=== PATIENT | female | born 1990 | race American Indian/Alaskan Native ===

== ENCOUNTER 2016-11-08 12:29 | Emergency (ER) | payer OTHER ==
[2016-11-08 12:38] VITALS: BP 135/86
--- NOTE | 2016-11-08 14:12 | Emergency Department Report ---
ED General Adult HPI - General Chief complaint: Wound/Laceration Stated complaint: LT LEG LACERATION Time Seen by Provider: 11/08/16 12:58 Source: patient Mode of arrival: Ambulatory Limitations: No Limitations - History of Present Illness Initial comments: 26-year-old female presents to the ED with superficial laceration to the anterior left lower leg. States this happened about 3 hours prior to arrival. Denies other injury. States bleeding is under control. - Related Data Allergies Allergy/AdvReac Type Severity Reaction Status Date / Time No Known Allergies Allergy Unverified 11/08/16 12:38 ED Review of Systems ROS: Stated complaint: LT LEG LACERATION Other details as noted in HPI Constitutional: denies: chills, fever Eyes: denies: eye pain, eye discharge, vision change ENT: denies: ear pain, throat pain Respiratory: denies: cough, shortness of breath, wheezing Cardiovascular: denies: chest pain, palpitations Endocrine: no symptoms reported Gastrointestinal: denies: abdominal pain, nausea, diarrhea Genitourinary: denies: urgency, dysuria, discharge Musculoskeletal: denies: back pain, joint swelling, arthralgia Skin: other (laceration). denies: rash, lesions Neurological: denies: headache, weakness, paresthesias Psychiatric: denies: anxiety, depression Hematological/Lymphatic: denies: easy bleeding, easy bruising ED Past Medical Hx - Past Medical History Previous Medical History?: No - Surgical History Past Surgical History?: No - Social History Smoking Status: Never Smoker Substance Use Type: None ED Physical Exam - General Limitations: No Limitations General appearance: alert, in no apparent distress - Head Head exam: Present: atraumatic, normocephalic - Eye Eye exam: Present: normal appearance - ENT ENT exam: Present: mucous membranes moist - Neck Neck exam: Present: normal inspection - Respiratory Respiratory exam: Present: normal lung sounds bilaterally. Absent: respiratory distress - Cardiovascular Cardiovascular Exam: Present: regular rate, normal rhythm. Absent: systolic murmur, diastolic murmur, rubs, gallop - GI/Abdominal GI/Abdominal exam: Present: soft, normal bowel sounds - Extremities Exam Extremities exam: Present: normal inspection, other (4 cm superficial vertical laceration to left lower leg.) - Back Exam Back exam: Present: normal inspection - Neurological Exam Neurological exam: Present: alert, oriented X3 - Psychiatric Psychiatric exam: Present: normal affect, normal mood - Skin Skin exam: Present: warm, dry, intact, normal color. Absent: rash ED Course Vital Signs 11/08/16 12:33 Temperature 98.3 F Pulse Rate 76 Respiratory 18 Rate Blood Pressure 135/86 O2 Sat by Pulse 100 Oximetry - Procedure Description Procedures done: Patient wound cleaned with Betadine and sterile saline. Surgical adhesive used to glue the wound edges together. Patient tolerated procedure well. Critical care attestation.: If time is entered above; I have spent that time in minutes in the direct care of this critically ill patient, excluding procedure time. ED Disposition Clinical Impression: Laceration of left lower leg Disposition: DISCHARGED TO HOME OR SELFCARE Is pt being admited?: No Does the pt Need Aspirin: No Condition: Good Instructions: Laceration (ED), Skin Adhesive Care (ED) Referrals: [facility], [Primary Care Provider] - 3-5 Days [facility] [Provider Group] - 3-5 Days Forms: Work/School Release Form(ED) Time of Disposition: 14:12
== END 2016-11-08 14:28 | disposition home or self-care (01) ==
LOC: ED 12:29
DX: S81.812A Laceration without foreign body, left lower leg, initial encounter (principal); X58.XXXA Exposure to other specified factors, initial encounter; Y93.89 Activity, other specified; Y99.9 Unspecified external cause status; Y92.89 Other specified places as the place of occurrence of the external cause
CPT/HCPCS: 99282

== ENCOUNTER 2019-06-04 20:30 | Inpatient (IN) | payer MEDICAID ==
[2019-06-04] MEDS ORDERED: TERBUTALINE 1 MG/1 ML INJ IVP PRN (22:04)
[2019-06-04] MEDS ORDERED: MINERAL OIL 30 ML ORAL LIQD PO PRN (22:04)
[2019-06-04] MEDS ORDERED: ePHEDrine SULFATE 50 MG/1 ML INJ IV PRN (22:04)
[2019-06-04] MEDS ORDERED: TERBUTALINE 1 MG/1 ML INJ SUB-Q PRN (22:04)
[2019-06-04] MEDS ORDERED: ZOLPIDEM 10 MG TAB PO PRN (22:08)
[2019-06-04 22:20] LABS: Hematocrit 36.1 % (30.3-42.9); Hemoglobin 11.9 gm/dl (10.1-14.3); Mean Corpuscular HGB Conc 33 % (30-34); Mean Corpuscular Volume 91 fl (79-97); Platelet Count 196 K/mm3 (140-440); Red Blood Count 3.96 M/mm3 (3.65-5.03); Red Cell Distribution Width 14.4 % (13.2-15.2)
[2019-06-04] MEDS ORDERED: LIDOCAINE (2%) 20 MG/1 ML VIAL 20 ML MDV INFILTRATI ONE (22:24)
[2019-06-04] MEDS ORDERED: DINOPROSTONE 10 MG VAG SUPP VG ONE (22:34)
[2019-06-04] MEDS ORDERED: OXYTOCIN 20 UNIT/1000ML DRIP 20 UNITS/1,000 ML BAG IV SCH (23:00)
[2019-06-04] MEDS ORDERED: OXYTOCIN DRIP 30 UNITS/500 ML BAG IV SCH (23:00)
[2019-06-04] MEDS ORDERED: LACTATED RINGERS 1,000 ML IV SCH (23:00)
--- NOTE | 2019-06-05 09:49 | History and Physical Report ---
History of Present Illness Date of examination: 06/05/19 Date of admission: 06/04/19 20:39 Chief complaint: Induction of labor History of present illness: Pt is a 29yo BF EDC 06/10/19; EGA 39 2/7 weeks presents for induction of labor due to Obesity per [facility]. She received care at [facility] since 13 weeks and co-managed by [facility] fpr Obesity. records are available and GBS is Positive. Past History Past Medical History: no pertinent history Past Surgical History: no surgical history Family/Genetic History: none Social history: no significant social history, single - Obstetrical History Expected Date of Delivery: 06/10/19 Actual Gestation: 39 Week(s) 2 Day(s) : 2 Medications and Allergies Allergies Allergy/AdvReac Type Severity Reaction Status Date / Time No Known Allergies Allergy Unverified 11/08/16 12:38 Active Meds: Active Medications Ephedrine Sulfate (Ephedrine Sulfate) 10 mg IV Q2M PRN PRN Reason: Hypotension Oxytocin/Sodium Chloride (Pitocin/Ns 20 Unit/1000ml Drip) 20 units in 1,000 mls @ 125 mls/hr IV DIRECT NANDINI Oxytocin/Sodium Chloride (Pitocin/Ns 30 Unit/500ml) 30 units in 500 mls @ 1 mls/hr IV TITR NANDINI; Protocol Lactated Ringer's (Lactated Ringers) 1,000 mls @ 125 mls/hr IV DIRECT NANDINI Mineral Oil (Mineral Oil) 30 ml PO QHS PRN PRN Reason: Constipation Terbutaline Sulfate (Brethine) 0.25 mg SUB-Q ONCE PRN PRN Reason: Hyperstimulation/Hypertonicity Terbutaline Sulfate (Brethine) 0.25 mg IVP ONCE PRN PRN Reason: Hyperstimulation/Hypertonicity Zolpidem Tartrate (Ambien) 10 mg PO QHS PRN PRN Reason: Insomnia Last Admin: 06/04/19 22:42 Dose: 10 mg Documented by: Review of Systems All systems: negative - Vital Signs Vital signs: Vital Signs Pulse BP 93 H 143/67 06/04/19 21:04 06/04/19 21:04 Temp Pulse Resp BP Pulse Ox 97.3 F L 83 18 130/83 99 06/05/19 07:08 06/05/19 07:18 06/05/19 07:08 06/05/19 07:08 06/05/19 07:18 - Physical Exam Breasts: Positive: deferred Cardiovascular: Regular rate Lungs: Positive: Clear to auscultation Abdomen: Positive: normal appearance Genitourinary (Female): Positive: normal external genitalia Uterus: Positive: enlarged Extremities: Positive: normal - Obstetrical FHR: category 1 Uterine Contraction Monitor Mode: External Uterine Contraction Pattern: Absent Results Result Diagrams: 06/04/19 22:00 All other labs normal. Assessment and Plan - Patient Problems (1) 39 weeks gestation of Onset Date: 06/05/19 Current Visit: Yes Status: Acute Plan to address problem: A: IUP @ 39 2/7 weeks Obesity +GBS P: Admit to L&D for cervidil/pitocin induction of labor IV Ampicillin
[2019-06-05] MEDS ORDERED: BUTORPHANOL 2 MG/1 ML INJ IV PRN (11:00)
[2019-06-05] MEDS ORDERED: TERBUTALINE 1 MG/1 ML INJ SUB-Q PRN (11:00)
[2019-06-05] MEDS ORDERED: TERBUTALINE 1 MG/1 ML INJ IVP PRN (11:00)
[2019-06-05] MEDS ORDERED: OXYTOCIN 20 UNIT/1000ML DRIP 20 UNITS/1,000 ML BAG IV SCH (11:00)
[2019-06-05] MEDS ORDERED: fentaNYL 100 MCG/2 ML INJ IV PRN (11:00)
[2019-06-05] MEDS ORDERED: ePHEDrine SULFATE 50 MG/1 ML INJ IV PRN (11:00)
[2019-06-05] MEDS ORDERED: AMPICILLIN/NS 2 GM/100 ML 2 GM/100 ML BAG IV ONE (11:00)
[2019-06-05] MEDS ORDERED: MINERAL OIL 30 ML ORAL LIQD PO PRN (11:00)
[2019-06-05] MEDS ORDERED: OXYTOCIN DRIP 30 UNITS/500 ML BAG IV SCH ×2 (11:00)
[2019-06-05] MEDS ORDERED: ONDANSETRON 4 MG/2 ML INJ IV PRN (11:00)
[2019-06-05] MEDS ORDERED: LIDOCAINE (2%) 20 MG/1 ML VIAL 20 ML MDV INFILTRATI NR (11:00)
[2019-06-05] MEDS ORDERED: DINOPROSTONE 10 MG VAG SUPP VG ONE (16:00)
[2019-06-05] MEDS: AMPICILLIN/NS 1 GM/50 ML 1 GM/50 ML BAG IV SCH (16:44)
[2019-06-06] MEDS ORDERED: OXYTOCIN DRIP 30 UNITS/500 ML BAG IV SCH (07:00)
--- NOTE | 2019-06-06 08:56 | Progress Note ---
Assessment and Plan - Patient Problems (1) 39 weeks gestation of Onset Date: 06/05/19 Current Visit: Yes Status: Acute Plan to address problem: A: IUP @ 39 3/7 weeks Obesity +GBS P: Continue with pitocin induction of labor IV Ampicillin Subjective - Subjective Date of service: 06/06/19 Principal diagnosis: IUP @ 39 3/7 weeks; Obesity Interval history: Pt is a 29yo BF EDC 06/10/19; EGA 39 3/7 weeks presents for induction of labor due to Obesity per [facility]. She received care at [facility] since 13 weeks and co-managed by [facility] for Obesity. She received cervidil x 2 last night and currently shelbie irregularly. GBS is Positive. Patient reports: movement normal, contractions, no new complaints, no loss of fluid, no vaginal bleeding Objective - Vital Signs Vital Signs: Vital Signs - 12hr 06/06/19 06/06/19 06/06/19 00:00 02:06 03:54 Temperature 98.2 F Pulse Rate 88 75 Respiratory Rate Blood Pressure 129/79 132/82 06/06/19 06/06/19 06/06/19 04:00 06:48 07:18 Temperature 97.8 F Pulse Rate 75 77 Respiratory 16 Rate Blood Pressure 130/80 129/87 06/06/19 06/06/19 06/06/19 07:22 07:49 08:18 Temperature Pulse Rate 73 82 74 Respiratory Rate Blood Pressure 130/80 132/78 127/72 06/06/19 08:49 Temperature Pulse Rate 96 H Respiratory Rate Blood Pressure 132/85 - Exam Abdomen: Present: normal appearance, soft Uterus: Present: normal FHR: category 1 Uterine Contraction Monitor Mode: External Cervical Dilatation: 1 (per nurse) Cervical Effacement Percentage: 50 (per nurse) station: -2 Uterine Contraction Pattern: Irregular Uterine Tone Measurement Phase: Contraction Uterine Contraction Intensity: Mild - Labs Labs: Laboratory Results - last 24 hr 06/04/19 22:00 RPR Nonreactive
[2019-06-06] MEDS ORDERED: OXYTOCIN 20 UNIT/1000ML DRIP 20 UNITS/1,000 ML BAG IV SCH ×3 (10:00→21:00)
[2019-06-06] MEDS: LACTATED RINGERS 1,000 ML IV SCH ×2 (15:54→17:47)
[2019-06-06] MEDS ORDERED: ePHEDrine SULFATE 50 MG/1 ML INJ IV PRN (18:25)
[2019-06-06] MEDS ORDERED: NALOXONE 2 MG/2 ML INJ IV PRN (18:25)
--- NOTE | 2019-06-06 18:26 | Anesthesia Consultation ---
Anesthesia Consult and Med Hx Date of service: 06/06/19 - Airway Anesthetic Teeth Evaluation: Good ROM Head & Neck: Adequate Mental/Hyoid Distance: Adequate Mallampati Class: Class II Intubation Access Assessment: Probably Good - Pulmonary Exam CTA: Yes - Cardiac Exam Cardiac Exam: RRR - Pre-Operative Health Status ASA Pre-Surgery Classification: ASA3 Proposed Anesthetic Plan: Epidural - Pulmonary Hx Asthma: No COPD: No Hx Pneumonia: No - Cardiovascular System Hx Hypertension: No - Central Nervous System Hx Seizures: No Hx Psychiatric Problems: No - Endocrine Hx Renal Disease: No Hx End Stage Renal Disease: No Hx Hypothyroidism: No Hx Hyperthyroidism: No - Hematic Hx Anemia: No Hx Sickle Cell Disease: No - Other Systems Hx Alcohol Use: No Hx Substance Use: Yes Hx Obesity: Yes
[2019-06-06] MEDS: AMPICILLIN/NS 1 GM/50 ML 1 GM/50 ML BAG IV SCH (18:45)
[2019-06-06] MEDS ORDERED: fentaNYL-BUPIV 2 MCG/ML-0.125% 200 MCG/100 ML BAG EPIDURAL SCH (19:00)
--- NOTE | 2019-06-06 20:36 | Procedure Note ---
OB Delivery Note - Delivery Date of Delivery: 06/06/19 Surgeon: SONIA STRANGE Estimated blood loss: 100cc - Vaginal Delivery presentation: vertex Delivery position: OA Intrapartum events: PROM->1hr before delivery Delivery induction: cervidil Delivery augmentation: rupture of membranes, pitocin Delivery monitor: external FHT, external uterine Route of delivery: Delivery placenta: spontaneous Delivery cord: 3 umbilical vessels Episiotomy: none Delivery laceration: none Anesthesia: epidural Delivery comments: Infant delivered OA and placed on Mom's chest for [id number] bonding and delayed cord clamping, cut by Dad - Infant A at 1 minute: 8 at 5 minutes: 9 Infant Gender: Male (3379gms)
[2019-06-06] MEDS ORDERED: MAGNESIUM HYDROXIDE (MOM) ORAL LIQD UDC PO PRN (20:37)
[2019-06-06] MEDS ORDERED: diphenhydrAMINE 25 MG CAP PO PRN (20:37)
[2019-06-06] MEDS ORDERED: HYDROcodone/ACETAMINOPHEN 5-325 MG TAB PO PRN (20:37)
[2019-06-06] MEDS ORDERED: LANOLIN/ZINC/DIMETHICONE (LANSINOH) 7 GM TP PRN (20:37)
[2019-06-06] MEDS ORDERED: ACETAMINOPHEN 325 MG TAB PO PRN (20:37)
[2019-06-06] MEDS ORDERED: ONDANSETRON 4 MG/2 ML INJ IV PRN (20:37)
[2019-06-06] MEDS ORDERED: PROMETHAZINE 25 MG RECT SUPP PR PRN (20:37)
[2019-06-06] MEDS ORDERED: PROMETHAZINE 25 MG TAB PO PRN (20:37)
[2019-06-06] MEDS ORDERED: WITCH HAZEL/ GLYCERIN PAD TP PRN (20:37)
[2019-06-06] MEDS: IBUPROFEN 600 MG TAB PO SCH (21:30)
[2019-06-07] MEDS: IBUPROFEN 600 MG TAB PO SCH ×3 (05:53→23:51)
[2019-06-07 08:25] LABS: Hematocrit 36.6 % (30.3-42.9); Hemoglobin 12.3 gm/dl (10.1-14.3)
--- NOTE | 2019-06-07 09:46 | Progress Note ---
Assessment and Plan - Patient Problems (1) 39 weeks gestation of Onset Date: 06/05/19 Current Visit: Yes Status: Resolved (2) (normal spontaneous vaginal delivery) Onset Date: 06/07/19 Current Visit: Yes Status: Resolved Plan to address problem: A: S/P - PPD #1 Doing well P: May go home tomorrow. Subjective - Subjective Date of service: 06/07/19 Principal diagnosis: s/p - PPD #1 Interval history: Pt is feeling well without complaints. Bleeding improved. Patient reports: appetite normal, voiding normally, pain well controlled, flatus, ambulating normally, no dizzy ambulation, no nauseated : doing well, nursing well Objective - Vital Signs Latest vital signs: Vital Signs Temp Pulse Resp BP BP Pulse Ox 06/07/19 08:24 97.7 F 76 18 127/77 98 06/07/19 05:53 18 06/07/19 05:20 98.3 F 78 20 120/61 100 06/06/19 23:59 72 98 06/06/19 23:58 98.4 F 77 20 123/84 99 06/06/19 22:56 76 130/67 06/06/19 22:41 83 142/75 06/06/19 22:26 82 137/69 06/06/19 22:19 82 143/84 06/06/19 22:11 78 140/85 06/06/19 21:56 80 132/84 06/06/19 21:45 98.5 F 06/06/19 21:30 16 06/06/19 21:26 88 133/83 06/06/19 21:11 79 126/76 06/06/19 20:57 88 133/82 06/06/19 20:45 98.6 F 06/06/19 20:33 76 129/77 06/06/19 20:18 70 141/80 06/06/19 19:48 91 H 139/91 06/06/19 19:43 80 100 06/06/19 19:39 91 H 86 06/06/19 19:38 83 100 06/06/19 19:33 98.5 F 80 154/79 81 L 06/06/19 19:32 79 99 06/06/19 19:28 82 L 06/06/19 19:27 88 100 06/06/19 19:22 72 100 06/06/19 19:17 96 H 99 06/06/19 19:12 79 97 06/06/19 19:11 65 86 06/06/19 19:07 63 100 06/06/19 19:03 69 95/50 06/06/19 19:02 67 100 06/06/19 18:57 67 100 06/06/19 18:52 71 100 06/06/19 18:50 67 99/50 06/06/19 18:47 74 100 06/06/19 18:42 71 99 06/06/19 18:37 69 100 06/06/19 18:35 48 L 06/06/19 18:32 77 111/61 98 06/06/19 18:30 79 111/60 06/06/19 18:28 70 110/57 06/06/19 18:27 70 100 06/06/19 18:26 72 118/61 06/06/19 18:22 75 124/60 100 06/06/19 18:21 83 134/83 06/06/19 18:18 93 H 149/87 06/06/19 18:16 82 141/80 06/06/19 18:14 74 139/78 06/06/19 16:58 16 06/06/19 16:40 73 117/56 06/06/19 12:18 83 140/88 06/06/19 11:48 97 H 142/90 06/06/19 11:18 89 137/71 06/06/19 10:49 74 123/70 06/06/19 10:18 86 132/74 Intake and Output 06/06/19 06/07/19 06/07/19 22:59 06:59 14:59 Intake Total 235.417 240 Output Total 1175 1500 Balance -939.713 1260 Intake: IV 235.417 Lactated Ringers 1,000 ml 235.417 @ 125 mls/hr IV DIRECT NANDINI Rx#:[id number] Oral 240 Output: Urine 1175 1500 Indwelling Catheter 1175 Void 1500 Other: Total, Intake Amount 240 Total, Output Amount 275 800 Estimated Blood Loss 100 - Exam Breasts: Present: deferred Abdomen: Present: normal appearance, soft Uterus: Present: normal, firm, fundal height below umbilicus Extremities: Present: normal - Labs Labs: Laboratory Tests 06/04/19 06/04/19 06/04/19 22:00 22:00 22:00 WBC 9.3 RBC 3.96 Hgb 11.9 Hct 36.1 MCV 91 MCH 30 MCHC 33 RDW 14.4 Plt Count 196 RPR Nonreactive Blood Type O POSITIVE Antibody Screen Negative 06/07/19 08:15 WBC RBC Hgb 12.3 Hct 36.6 MCV MCH MCHC RDW Plt Count RPR Blood Type Antibody Screen
[2019-06-07] MEDS ORDERED: PRENATAL VIT27-FE FUMARATE-FOLIC ACID VIT TAB PO SCH (10:00)
[2019-06-07] MEDS: FERROUS SULFATE 325 MG TAB PO SCH ×2 (18:03→22:05)
[2019-06-07] MEDS ORDERED: TETANUS,DIPH,PERTUSS(ACELL) VACCINE 0.5 ML SYRINGE IM ONE (20:37)
[2019-06-07] MEDS ORDERED: MEASLES, MUMPS & RUBELLA 12,500 UNIT/0.5 ML VACCINE SUB-Q ONE (20:37)
[2019-06-08] MEDS: IBUPROFEN 600 MG TAB PO SCH (05:43)
--- NOTE | 2019-06-08 10:39 | Discharge Summary ---
Providers - Providers Date of Admission: 06/04/19 20:39 Date of discharge: 06/08/19 Attending physician: SONIA STRANGE Primary care physician: SONIA STRANGE Hospitalization Reason for admission: induction of labor, IUP at term Delivery: Episiotomy: none Laceration: none Other procedures: none complications: none Discharge diagnosis: IUP at term delivered [place] baby: male Hospital course: Unremarkable. Condition at discharge: Good Disposition: DC-01 TO HOME OR SELFCARE - Discharge Diagnoses (1) 39 weeks gestation of Status: Resolved (2) (normal spontaneous vaginal delivery) Status: Resolved Plan - Discharge Medications Prescriptions: Ibuprofen [Motrin 600 MG tab] 600 mg PO Q6H #30 tablet Vit-Fe Fumar-FA [ Vitamin] 1 each PO QDAY #30 tablet - Provider Discharge Summary Activity: routine, no sex for 6 weeks, no heavy lifting 4 weeks, no strenuous exercise Diet: routine Instructions: routine Additional instructions: [] Smoking cessation referral if applicable(refer to patient education folder for contact #) [] Refer to [facility] Booklet Call your doctor immediately for: * Fever > 100.5 * Heavy vaginal bleeding ( >1 pad per hour) * Severe persistent headache * Shortness of breath * Reddened, hot, painful area to leg or breast * Drainage or odor from incision. * Keep incision clean and dry at all times and follow doctor's instructions regarding bathing/showering - Follow up plan Follow up: SONIA STRANGE MD [Primary Care Provider] - 6 Weeks FELIX ADAIR NP [Referring] - 7 Days Forms: [facility] Discharge Summary
[2019-06-08 13:54] VITALS: BP 143/88
== END 2019-06-08 15:10 | disposition home or self-care (01) | DRG 775 ==
LOC: TRG 20:30 → LD 20:39 → OB 06-06 23:37
PROVIDERS: ADMIT Obstetrics & Gynecology; ATTEND Obstetrics & Gynecology
PROC: 10E0XZZ Delivery of Products of Conception, External Approach (ICD-10-PCS; principal; 2019-06-06)
PROC: 3E0P7VZ Introduction of Hormone into Female Reproductive, Via Natural or Artificial Opening (ICD-10-PCS; 2019-06-06)
PROC: 3E0R3BZ Introduction of Anesthetic Agent into Spinal Canal, Percutaneous Approach (ICD-10-PCS; 2019-06-06)
PROC: 00HU33Z Insertion of Infusion Device into Spinal Canal, Percutaneous Approach (ICD-10-PCS; 2019-06-06)
PROC: 3E0234Z Introduction of Serum, Toxoid and Vaccine into Muscle, Percutaneous Approach (ICD-10-PCS; 2019-06-07)
DX: O99.214 Obesity complicating childbirth (principal); E66.9 Obesity, unspecified; O99.824 Streptococcus B carrier state complicating childbirth; Z3A.39 39 weeks gestation of pregnancy; Z37.0 Single live birth; Z23 Encounter for immunization
CPT/HCPCS: 36415; 59200; 85014; 85018; 85027; 86592; 86850; 86900; 86901; G0378; J0290; J0595; J2590; J7120